=== PATIENT | male | born 1970 | race Caucasian/White ===

== ENCOUNTER 2023-05-01 10:12 | Observation (INO) | payer OTHER, SELFPAY ==
[2023-05-01] VITALS (56 sets, daily range): BP systolic 96–218; BP diastolic 50–125; PULSE 53–82; RESP 11–24; TEMP 36.3–36.7; O2SAT 96–99; BMI 30.4
--- NOTE | 2023-05-01 10:30 | DI.CT_ITS ---
Exam(s) CT THORAX ABD/PEL CTA EXAM: CT THORAX ABD/PEL CTA CLINICAL HISTORY: Abdominal pain, R/O AAA. TECHNIQUE: Imaging Protocol: Axial CT angiography was performed with multi-slice acquisition and mu lti-planar and/or 3D reconstructions. CONTRAST MATERIAL: Intravenous: Omnipaque 350 Contrast volume:100 ml COMPARISON: No exams were available for comparison FINDINGS: CHEST: Pulmonary Arteries: No evidence of filling defects to suggest pulmonary emboli. Tracheobronchial tree: No bronchiectasis or mucus plugging. Mediastinum and Tanisha: No dominant adenopathy or fluid collection. Pulmonary parenchyma: No consolidation or dominant measurable mass. Pleura: No effusion. No pneumothorax. Heart: The heart is notdilated. No coronary artery calcifications are seen. Aorta: Thoracic aorta non-dilated. No visible atherosclerotic changes. Bones: Mild scoliosis. Degenerative changes. Tubes, Catheters, and Lines: None. ABDOMEN and PELVIS: Liver: Normal size. Normal density. No suspicious measurable mass. Portal, Superior Mesenteric, and Splenic Veins: Unremarkable. Gallbladder and Biliary Tract: No radiodense calculus. No biliary dilatation. Pancreas: Normal density, no abnormal calcifications or inflammatory process. Spleen: Normal. Adrenals: No masses seen. Kidneys: Normal size, contour and axis. No radiodense stones. No obstructive uropathy. No masses seen . Vasculature: Abdominal aorta non-dilated. Branch vessels patent. No significant atherosclerotic juan ramon nges. Bowel: Dilated loops of small bowel in the right and mid abdomen the appearance of small bowel obstru ction. No evidence of pneumatosis. Normal quantity of stool. Appendix is unremarkable. Peritoneal Cavity: Small amount of fluid in the pelvis. No focal collection. Lymph Nodes: Within normal limits. Soft Tissues: Unremarkable. Bladder: Symmetric distention, no gross wall thickening. Reproductive Organs: Prostate mildly enlarged. Lymph Nodes: Within normal limits. Bones: Unremarkable for age. IMPRESSION: 1. No evidence of pulmonary embolism, aortic aneurysm or aortic dissection. 2. Findings consistent with small-bowel obstruction which may be secondary to internal hernia or adhe sions. No evidence of vascular abnormality. RADIATION DOSE DELIVERED: Total DLP DATA REPOSITORY: All CT scans at this facility are submitted to the National Radiology Data Registry (NRDR) Dose Index Registry (DIR) with the [employer] (ACR). RADIATION OPTIMIZATION: All CT scans at this facility use at least one of these dose optimization te chniques: automated exposure control; mA and/or kV adjustment per patient size (includes targeted exa ms where dose is matched to clinical indication); or iterative reconstruction.
--- NOTE | 2023-05-01 10:30 | RT.EKG_ITS ---
APPROVED REPORT Exam: Resting ECG Reason for Exam: Abd Pain Patient Location: E HR:60 bpm ECG Measurements Heart Rate 60 AXIS VA [id number] P [id number] QRSd 96 QRS -2 QT 415 T -19 QTc 417 Conclusion A-flutter/fibrillation w/ complete AV block...A-rate>220, V-rate< 60, AV dissoc Consider anterior infarct...Q >30mS in V2-V5 Abnormal T, consider ischemia, inferior leads...T <-0.20mV, II III aVF Narrow complex normal sinus rhythm with significant artifact at a rate of 60. Left axis deviation no signs of LVH based on voltage. Mild upsloping ST segment elevation in V2. Disagree with computer i nterpretation of complete heart block. Will repeat ECG. QTc within normal limits. No acute interve ntion.
--- NOTE | 2023-05-01 10:44 | W.ED.GENAD ---
Discharge Plan Disposition Patient Disposition: Admit to [facility] Condition: Stable Discharge Details Clinical Impression: SBO (small bowel obstruction) Primary Care Provider: Juan Ramon Thomas ED Provider: Sue Mitchell Home Meds and New Rx's Prescriptions: No Action No Known Home Meds Medical Decision Making 53-year-old male presents to the ER with a chief complaint of sharp mid epigastric abdominal pain which has worsened he reports that it radiates down to his lower abdomen. He did vomit clear liquid on the way here. Only surgical history is appendicitis and appendectomy. Denies any medicine denies any drugs or alcohol. Following he is hypertensive upon arrival and writhing around. Generalized abdominal tenderness with mild palpation. Cardiac workup ordered including serial troponins, EKG which showed some artifact, lipase, urinalysis 4 mg Zofran morphine and a liter of normal saline. CTA thorax abdomen pelvis ordered. Differential diagnosis includes but not limited to AAA, gastroenteritis, pancreatitis, bowel obstruction, CAD. 1225: Spoke with [facility] radiologiist he verbally reports concerning findings for small bowel obstruction due to adhesion or internal hernia. Please see official report. 1236: Spoke with Dr. Gresham who is on-call for surgery today she will take a look at the images and call me back. 1254: Spoke again with Dr. Gresham who is on-call for surgery she will be coming into evaluate the patient. She does recommend NG tube if patient is continuing to have emesis. Will inform patient of plan of care and CT results. 1422: Dr. Gresham and anesthesia are here at bedside, plan for surgery. This text was generated using [employer] dictation system, please disregard any oddities of phrase or misspellings. Imaging Data Radiologic Study: Imaging: CT Scan Radiologist's impression: FINDINGS: VASCULATURE: Pulmonary arteries: Not enlarged. Aorta: No acute aortic abnormality identified. No abdominal aortic aneurysm. Celiac trunk and mesenteric arteries: No occlusion or significant stenosis. Renal arteries: No occlusion or significant stenosis. Right iliac arteries: No occlusion or significant stenosis. Left iliac arteries: No occlusion or significant stenosis. CHEST: Lungs: Unremarkable. No consolidation. No masses. Pleural spaces: Unremarkable. No pneumothorax. No pleural effusion. Heart: Unremarkable. No cardiomegaly. No pericardial effusion. Liver: No mass. Gallbladder and bile ducts: Unremarkable. No calcified stones. No ductal dilation. Pancreas: Unremarkable. No mass. No ductal dilation. Spleen: Unremarkable. No splenomegaly. Adrenal glands: Unremarkable. No mass. Kidneys and ureters: Unremarkable. No solid mass. No hydronephrosis. Stomach and bowel: The stomach appears unremarkable. Proximal small bowel is unremarkable. Some mid small bowel loops measuring up to 3.3 cm in diameter and are fluid-filled with a transition to nondilated distal small bowel loops in the right mid pelvis (axial series 6 image 858). Mild small bowel mesenteric fat stranding and vascular hyperemia. No significant wall thickening. The large bowel loops are not abnormally dilated. Appendix: No evidence of appendicitis. Intraperitoneal space: Minimal free fluid in the pelvis. Urinary bladder: Unremarkable. No mass. Reproductive: Unremarkable as visualized. Lymph nodes: Unremarkable. No enlarged lymph nodes. Bones/joints: Unremarkable. No acute fracture. Soft tissues: Unremarkable. IMPRESSION: 1. No acute aortic abnormality identified. No abdominal aortic aneurysm. 2. Findings concerning for small bowel obstruction possibly due to adhesions or internal hernia. 3. Minimal free fluid in the pelvis. Thank you for allowing us to participate in the care of your patient. Dictated and Authenticated by: Reggie Andrade MD Lab Data Lab results reviewed: Yes I reviewed the patient's lab results. Labs: Laboratory Tests Range/Units 05/01/23 05/01/23 05/01/23 10:24 10:24 10:24 WBC (4.4-10.8) 10^3/uL 13.17 H RBC (4.36-5.78) 10^6/uL 5.42 Hgb (13.5-17.5) g/dL 15.4 Hct (40.0-50.0) % 46.5 MCV (80-95) fL 86 MCH (27.0-33.0) pg 28.4 MCHC (32.0-36.0) % 33.1 RDW (11.8-14.1) % 12.7 Plt Count (130-400) 10^3/uL 269 MPV (8.0-11.0) fL 10.5 Immature Gran % 0.3 Neutrophils % 86.7 Lymphocytes % 10.2 Monocytes % 2.6 Eosinophils % 0.0 Basophils % 0.2 Nucleated RBC % (0.0-0.3) % 0.0 Absolute Neutrophils (1.2-6.7) 10^3/uL 11.42 H Absolute Lymphocytes (1.2-3.4) 10^3/uL 1.34 Absolute Monocytes (0.1-0.8) 10^3/uL 0.34 Absolute Eosinophils (0.0-0.7) 10^3/uL 0.00 Absolute Basophils (0.0-0.2) 10^3/uL 0.03 Sodium (136-145) mmol/L 138 Cancelled Potassium (3.5-5.1) mmol/L 4.4 Cancelled Chloride (98-107) mmol/L 101 Carbon Dioxide (21.0-32.0) mmol/L Anion Gap (3-11) mmol/L BUN (7-18) mg/dL Creatinine (0.70-1.30) mg/dL Est GFR (CKD-EPI 2020) (mL/min/1.73m2) Glucose (74-106) mg/dL Calcium (8.5-10.1) mg/dL Magnesium (1.8-2.4) mg/dL Total Bilirubin (0.2-1.0) mg/dL AST (15-37) U/L ALT (16-63) U/L Alkaline Phosphatase (46-116) U/L Troponin I (<or=60) ng/L Total Protein (6.4-8.2) g/dL Albumin (3.4-5.0) g/dL Lipase (16-77) U/L Urine Color (Yellow) Urine Clarity (Clear) Urine pH (5-8) Ur Specific [place] (1.005-1.025) Urine Protein (Negative) mg/dL Urine Ketones (Negative) mg/dL Urine Blood (Negative) Urine Nitrite (Negative) Urine Bilirubin (Negative) Urine Urobilinogen (Up to 0.2) mg/dL Ur Leukocyte Esterase (Negative) Urine RBC (0-2) HPF Urine WBC (0-5) HPF Ur Epithelial Cells (Negative) HPF Urine Crystals (Negative) HPF Urine Bacteria (Negative) HPF Urine Casts (Negative) LPF Urine Mucus (Negative) Ur Culture Indicated? Urine Glucose (Negative) mg/dL Range/Units 05/01/23 05/01/23 05/01/23 10:24 10:24 10:24 WBC (4.4-10.8) 10^3/uL RBC (4.36-5.78) 10^6/uL Hgb (13.5-17.5) g/dL Hct (40.0-50.0) % MCV (80-95) fL MCH (27.0-33.0) pg MCHC (32.0-36.0) % RDW (11.8-14.1) % Plt Count (130-400) 10^3/uL MPV (8.0-11.0) fL Immature Gran % Neutrophils % Lymphocytes % Monocytes % Eosinophils % Basophils % Nucleated RBC % (0.0-0.3) % Absolute Neutrophils (1.2-6.7) 10^3/uL Absolute Lymphocytes (1.2-3.4) 10^3/uL Absolute Monocytes (0.1-0.8) 10^3/uL Absolute Eosinophils (0.0-0.7) 10^3/uL Absolute Basophils (0.0-0.2) 10^3/uL Sodium (136-145) mmol/L Potassium (3.5-5.1) mmol/L Chloride (98-107) mmol/L Cancelled Carbon Dioxide (21.0-32.0) mmol/L 26.5 Cancelled Anion Gap (3-11) mmol/L 10.5 Cancelled BUN (7-18) mg/dL 11 Creatinine (0.70-1.30) mg/dL Est GFR (CKD-EPI 2020) (mL/min/1.73m2) Glucose (74-106) mg/dL Calcium (8.5-10.1) mg/dL Magnesium (1.8-2.4) mg/dL Total Bilirubin (0.2-1.0) mg/dL AST (15-37) U/L ALT (16-63) U/L Alkaline Phosphatase (46-116) U/L Troponin I (<or=60) ng/L Total Protein (6.4-8.2) g/dL Albumin (3.4-5.0) g/dL Lipase (16-77) U/L Urine Color (Yellow) Urine Clarity (Clear) Urine pH (5-8) Ur Specific [place] (1.005-1.025) Urine Protein (Negative) mg/dL Urine Ketones (Negative) mg/dL Urine Blood (Negative) Urine Nitrite (Negative) Urine Bilirubin (Negative) Urine Urobilinogen (Up to 0.2) mg/dL Ur Leukocyte Esterase (Negative) Urine RBC (0-2) HPF Urine WBC (0-5) HPF Ur Epithelial Cells (Negative) HPF Urine Crystals (Negative) HPF Urine Bacteria (Negative) HPF Urine Casts (Negative) LPF Urine Mucus (Negative) Ur Culture Indicated? Urine Glucose (Negative) mg/dL Range/Units 05/01/23 05/01/23 05/01/23 10:24 10:24 10:24 WBC (4.4-10.8) 10^3/uL RBC (4.36-5.78) 10^6/uL Hgb (13.5-17.5) g/dL Hct (40.0-50.0) % MCV (80-95) fL MCH (27.0-33.0) pg MCHC (32.0-36.0) % RDW (11.8-14.1) % Plt Count (130-400) 10^3/uL MPV (8.0-11.0) fL Immature Gran % Neutrophils % Lymphocytes % Monocytes % Eosinophils % Basophils % Nucleated RBC % (0.0-0.3) % Absolute Neutrophils (1.2-6.7) 10^3/uL Absolute Lymphocytes (1.2-3.4) 10^3/uL Absolute Monocytes (0.1-0.8) 10^3/uL Absolute Eosinophils (0.0-0.7) 10^3/uL Absolute Basophils (0.0-0.2) 10^3/uL Sodium (136-145) mmol/L Potassium (3.5-5.1) mmol/L Chloride (98-107) mmol/L Carbon Dioxide (21.0-32.0) mmol/L Anion Gap (3-11) mmol/L BUN (7-18) mg/dL Cancelled Creatinine (0.70-1.30) mg/dL 1.1 Cancelled Est GFR (CKD-EPI 2020) (mL/min/1.73m2) 80.77 Cancelled Glucose (74-106) mg/dL 146 H Calcium (8.5-10.1) mg/dL Magnesium (1.8-2.4) mg/dL Total Bilirubin (0.2-1.0) mg/dL AST (15-37) U/L ALT (16-63) U/L Alkaline Phosphatase (46-116) U/L Troponin I (<or=60) ng/L Total Protein (6.4-8.2) g/dL Albumin (3.4-5.0) g/dL Lipase (16-77) U/L Urine Color (Yellow) Urine Clarity (Clear) Urine pH (5-8) Ur Specific [place] (1.005-1.025) Urine Protein (Negative) mg/dL Urine Ketones (Negative) mg/dL Urine Blood (Negative) Urine Nitrite (Negative) Urine Bilirubin (Negative) Urine Urobilinogen (Up to 0.2) mg/dL Ur Leukocyte Esterase (Negative) Urine RBC (0-2) HPF Urine WBC (0-5) HPF Ur Epithelial Cells (Negative) HPF Urine Crystals (Negative) HPF Urine Bacteria (Negative) HPF Urine Casts (Negative) LPF Urine Mucus (Negative) Ur Culture Indicated? Urine Glucose (Negative) mg/dL Range/Units 05/01/23 05/01/23 05/01/23 10:24 10:24 10:24 WBC (4.4-10.8) 10^3/uL RBC (4.36-5.78) 10^6/uL Hgb (13.5-17.5) g/dL Hct (40.0-50.0) % MCV (80-95) fL MCH (27.0-33.0) pg MCHC (32.0-36.0) % RDW (11.8-14.1) % Plt Count (130-400) 10^3/uL MPV (8.0-11.0) fL Immature Gran % Neutrophils % Lymphocytes % Monocytes % Eosinophils % Basophils % Nucleated RBC % (0.0-0.3) % Absolute Neutrophils (1.2-6.7) 10^3/uL Absolute Lymphocytes (1.2-3.4) 10^3/uL Absolute Monocytes (0.1-0.8) 10^3/uL Absolute Eosinophils (0.0-0.7) 10^3/uL Absolute Basophils (0.0-0.2) 10^3/uL Sodium (136-145) mmol/L Potassium (3.5-5.1) mmol/L Chloride (98-107) mmol/L Carbon Dioxide (21.0-32.0) mmol/L Anion Gap (3-11) mmol/L BUN (7-18) mg/dL Creatinine (0.70-1.30) mg/dL Est GFR (CKD-EPI 2020) (mL/min/1.73m2) Glucose (74-106) mg/dL Cancelled Calcium (8.5-10.1) mg/dL 9.6 Cancelled Magnesium (1.8-2.4) mg/dL 2.1 Cancelled Total Bilirubin (0.2-1.0) mg/dL 0.6 AST (15-37) U/L ALT (16-63) U/L Alkaline Phosphatase (46-116) U/L Troponin I (<or=60) ng/L Total Protein (6.4-8.2) g/dL Albumin (3.4-5.0) g/dL Lipase (16-77) U/L Urine Color (Yellow) Urine Clarity (Clear) Urine pH (5-8) Ur Specific [place] (1.005-1.025) Urine Protein (Negative) mg/dL Urine Ketones (Negative) mg/dL Urine Blood (Negative) Urine Nitrite (Negative) Urine Bilirubin (Negative) Urine Urobilinogen (Up to 0.2) mg/dL Ur Leukocyte Esterase (Negative) Urine RBC (0-2) HPF Urine WBC (0-5) HPF Ur Epithelial Cells (Negative) HPF Urine Crystals (Negative) HPF Urine Bacteria (Negative) HPF Urine Casts (Negative) LPF Urine Mucus (Negative) Ur Culture Indicated? Urine Glucose (Negative) mg/dL Range/Units 05/01/23 05/01/23 05/01/23 10:24 10:24 10:24 WBC (4.4-10.8) 10^3/uL RBC (4.36-5.78) 10^6/uL Hgb (13.5-17.5) g/dL Hct (40.0-50.0) % MCV (80-95) fL MCH (27.0-33.0) pg MCHC (32.0-36.0) % RDW (11.8-14.1) % Plt Count (130-400) 10^3/uL MPV (8.0-11.0) fL Immature Gran % Neutrophils % Lymphocytes % Monocytes % Eosinophils % Basophils % Nucleated RBC % (0.0-0.3) % Absolute Neutrophils (1.2-6.7) 10^3/uL Absolute Lymphocytes (1.2-3.4) 10^3/uL Absolute Monocytes (0.1-0.8) 10^3/uL Absolute Eosinophils (0.0-0.7) 10^3/uL Absolute Basophils (0.0-0.2) 10^3/uL Sodium (136-145) mmol/L Potassium (3.5-5.1) mmol/L Chloride (98-107) mmol/L Carbon Dioxide (21.0-32.0) mmol/L Anion Gap (3-11) mmol/L BUN (7-18) mg/dL Creatinine (0.70-1.30) mg/dL Est GFR (CKD-EPI 2020) (mL/min/1.73m2) Glucose (74-106) mg/dL Calcium (8.5-10.1) mg/dL Magnesium (1.8-2.4) mg/dL Total Bilirubin (0.2-1.0) mg/dL Cancelled AST (15-37) U/L 14 L Cancelled ALT (16-63) U/L 24 Cancelled Alkaline Phosphatase (46-116) U/L 111 Troponin I (<or=60) ng/L Total Protein (6.4-8.2) g/dL Albumin (3.4-5.0) g/dL Lipase (16-77) U/L Urine Color (Yellow) Urine Clarity (Clear) Urine pH (5-8) Ur Specific [place] (1.005-1.025) Urine Protein (Negative) mg/dL Urine Ketones (Negative) mg/dL Urine Blood (Negative) Urine Nitrite (Negative) Urine Bilirubin (Negative) Urine Urobilinogen (Up to 0.2) mg/dL Ur Leukocyte Esterase (Negative) Urine RBC (0-2) HPF Urine WBC (0-5) HPF Ur Epithelial Cells (Negative) HPF Urine Crystals (Negative) HPF Urine Bacteria (Negative) HPF Urine Casts (Negative) LPF Urine Mucus (Negative) Ur Culture Indicated? Urine Glucose (Negative) mg/dL Range/Units 05/01/23 05/01/23 05/01/23 10:24 10:24 10:24 WBC (4.4-10.8) 10^3/uL RBC (4.36-5.78) 10^6/uL Hgb (13.5-17.5) g/dL Hct (40.0-50.0) % MCV (80-95) fL MCH (27.0-33.0) pg MCHC (32.0-36.0) % RDW (11.8-14.1) % Plt Count (130-400) 10^3/uL MPV (8.0-11.0) fL Immature Gran % Neutrophils % Lymphocytes % Monocytes % Eosinophils % Basophils % Nucleated RBC % (0.0-0.3) % Absolute Neutrophils (1.2-6.7) 10^3/uL Absolute Lymphocytes (1.2-3.4) 10^3/uL Absolute Monocytes (0.1-0.8) 10^3/uL Absolute Eosinophils (0.0-0.7) 10^3/uL Absolute Basophils (0.0-0.2) 10^3/uL Sodium (136-145) mmol/L Potassium (3.5-5.1) mmol/L Chloride (98-107) mmol/L Carbon Dioxide (21.0-32.0) mmol/L Anion Gap (3-11) mmol/L BUN (7-18) mg/dL Creatinine (0.70-1.30) mg/dL Est GFR (CKD-EPI 2020) (mL/min/1.73m2) Glucose (74-106) mg/dL Calcium (8.5-10.1) mg/dL Magnesium (1.8-2.4) mg/dL Total Bilirubin (0.2-1.0) mg/dL AST (15-37) U/L ALT (16-63) U/L Alkaline Phosphatase (46-116) U/L Cancelled Troponin I (<or=60) ng/L < 50 Total Protein (6.4-8.2) g/dL 8.2 Cancelled Albumin (3.4-5.0) g/dL 4.5 Cancelled Lipase (16-77) U/L 35 Urine Color (Yellow) Urine Clarity (Clear) Urine pH (5-8) Ur Specific [place] (1.005-1.025) Urine Protein (Negative) mg/dL Urine Ketones (Negative) mg/dL Urine Blood (Negative) Urine Nitrite (Negative) Urine Bilirubin (Negative) Urine Urobilinogen (Up to 0.2) mg/dL Ur Leukocyte Esterase (Negative) Urine RBC (0-2) HPF Urine WBC (0-5) HPF Ur Epithelial Cells (Negative) HPF Urine Crystals (Negative) HPF Urine Bacteria (Negative) HPF Urine Casts (Negative) LPF Urine Mucus (Negative) Ur Culture Indicated? Urine Glucose (Negative) mg/dL Range/Units 05/01/23 05/01/23 12:50 13:35 WBC (4.4-10.8) 10^3/uL RBC (4.36-5.78) 10^6/uL Hgb (13.5-17.5) g/dL Hct (40.0-50.0) % MCV (80-95) fL MCH (27.0-33.0) pg MCHC (32.0-36.0) % RDW (11.8-14.1) % Plt Count (130-400) 10^3/uL MPV (8.0-11.0) fL Immature Gran % Neutrophils % Lymphocytes % Monocytes % Eosinophils % Basophils % Nucleated RBC % (0.0-0.3) % Absolute Neutrophils (1.2-6.7) 10^3/uL Absolute Lymphocytes (1.2-3.4) 10^3/uL Absolute Monocytes (0.1-0.8) 10^3/uL Absolute Eosinophils (0.0-0.7) 10^3/uL Absolute Basophils (0.0-0.2) 10^3/uL Sodium (136-145) mmol/L Potassium (3.5-5.1) mmol/L Chloride (98-107) mmol/L Carbon Dioxide (21.0-32.0) mmol/L Anion Gap (3-11) mmol/L BUN (7-18) mg/dL Creatinine (0.70-1.30) mg/dL Est GFR (CKD-EPI 2020) (mL/min/1.73m2) Glucose (74-106) mg/dL Calcium (8.5-10.1) mg/dL Magnesium (1.8-2.4) mg/dL Total Bilirubin (0.2-1.0) mg/dL AST (15-37) U/L ALT (16-63) U/L Alkaline Phosphatase (46-116) U/L Troponin I (<or=60) ng/L Cancelled Total Protein (6.4-8.2) g/dL Albumin (3.4-5.0) g/dL Lipase (16-77) U/L Urine Color (Yellow) Yellow Urine Clarity (Clear) Clear Urine pH (5-8) 8.5 H Ur Specific [place] (1.005-1.025) 1.015 Urine Protein (Negative) mg/dL 30 H Urine Ketones (Negative) mg/dL 15 H Urine Blood (Negative) Negative Urine Nitrite (Negative) Negative Urine Bilirubin (Negative) Negative Urine Urobilinogen (Up to 0.2) mg/dL 1.0 H Ur Leukocyte Esterase (Negative) Negative Urine RBC (0-2) HPF Negative Urine WBC (0-5) HPF Negative Ur Epithelial Cells (Negative) HPF Rare Urine Crystals (Negative) HPF Negative Urine Bacteria (Negative) HPF Negative Urine Casts (Negative) LPF 0-2 Hyaline Urine Mucus (Negative) Negative Ur Culture Indicated? No Urine Glucose (Negative) mg/dL Negative HPI General Mode of arrival: ambulatory. Date/Time Provider Initiated Documentation: 05/01/23 10:33. Limitations to Documentation: no limitations. Information obtained by: patient, RN notes reviewed and old records reviewed. HPI Narrative: 53-year-old male presents to the ER with a chief complaint of sharp mid epigastric abdominal pain which has worsened he reports that it radiates down to his lower abdomen. He did vomit clear liquid on the way here. Only surgical history is appendicitis and appendectomy. Denies any medicine denies any drugs or alcohol. Following he is hypertensive upon arrival and writhing around. Generalized abdominal tenderness with mild palpation. Related Data Home Medications Medication Instructions Recorded Confirmed Unknown [No Known Home Meds] 07/16/18 05/01/23 Allergies Allergy/AdvReac Type Severity Reaction Status Date / Time No Known Allergies Allergy Verified 05/01/23 10:20 General Stated Complaint: Abd Prob JOEL: 3 Review of Systems All systems reviewed & are unremarkable except as noted in HPI and below Gastrointestinal Gastrointestinal: Reports as per HPI, Reports abdominal pain, Reports nausea and Reports vomiting PFSH All Active Problems (Updated 05/01/23 @ 13:12 by Sue Mitchell NP) SBO (small bowel obstruction) (Acute) Surgical History Hx of tonsillectomy 1988 History of appendectomy 1988 Family History Mother No problems noted. Father Hypertension Heart murmur Sleep apnea pt reports father's case of Sleep Apnea is mild Sister No problems noted. Sister No problems noted. Sister No problems noted. Brother No problems noted. Social History Smoking/Tobacco Use Status: Former Tobacco Use Tobacco: How many years used: 16 Smoking risk assessment performed?: Yes Alcohol Intake: former Drug use: Never Substance use type: does not use Household members: children Housing: house Current gender identity: male What is your relationship status?: Panel score (0-1 are the most socially isolated patients): 0 What type of physical activity do you participate in: none Seatbelt use: always Drive intox or ride w/intox dump truck driver off highway: No Working smoke detector in home: Yes Fire extinguisher in home: No Carbon monox detector in home: Yes Do you feel safe at home: Yes Do you feel safe in your relationship?: Yes Exam Narrative Exam Narrative: Constitutional: Alert and oriented x3. Appears stated age. Normal body habitus. He appears very uncomfortable. Head: Normocephalic, no trauma. Eyes: Pupils PERRL, Red reflex noted, EOM's intact. Eyelids symmetrical without lesions, discharge, or swelling. Chest: RRR, Normal S1, S2, distal pulses intact. He is hypertensive upon arrival. Resp: Lungs clear to auscultation bilaterally, no wheezes, rales, or rhonchi. Abdomen: Tender to all 4 quadrants with palpation. Positive guarding. Musculoskeletal: Normal gait, 5/5 strength to all four extremities. Skin: No suspicious rashes or lesions. Capillary refill less than 2 sec. Neurologic: Cranial nerves II-XII intact. Alert and oriented x 3. Motor: No deficits noted. Hematologic/Lymphatic: No ecchymosis, no lymphadenopathy. Course Vital Signs Vital signs: Vital Signs Temperature 36.6 C 05/01/23 10:17 Pulse 70 05/01/23 10:17 Respiratory Rate 18 05/01/23 10:17 Blood Pressure 194/108 H 05/01/23 10:17 Pulse Oximetry 99 05/01/23 10:17 Temperature 36.6 C 05/01/23 10:17 Temperature Source Oral 05/01/23 10:17 Pulse 70 05/01/23 10:17 Respiratory Rate 18 05/01/23 10:17 Respiratory Effort Non-Labored 05/01/23 10:21 Blood Pressure 194/108 H 05/01/23 10:17 Blood Pressure Position Sitting 05/01/23 10:17 Pulse Oximetry 99 05/01/23 10:17 Oxygen Delivery Method Room Air 05/01/23 10:17 Oxygen Flow Rate 0 05/01/23 10:17 Pain Level 9 05/01/23 10:23
[2023-05-01 10:46] LABS: Abs Immature Grans 0.04 10^3/uL (0.0-0.06); Absolute Basophil Count 0.03 10^3/uL (0.0-0.2); Absolute Lymphocyte Count 1.34 10^3/uL (1.2-3.4); Absolute Monocyte Count 0.34 10^3/uL (0.1-0.8); Absolute Neutrophil Count 11.42 10^3/uL (1.2-6.7); Basophils % 0.2; HCT 46.5 % (40.0-50.0); HGB 15.4 g/dL (13.5-17.5); Immature Grans % 0.3; Lymphocytes % 10.2; MCH 28.4 pg (27.0-33.0); MCHC 33.1 % (32.0-36.0); MCV 86 fL (80-95); MPV 10.5 fL (8.0-11.0); Monocytes % 2.6; Neutrophils % 86.7; Platelet Count 269 10^3/uL (130-400); RBC 5.42 10^6/uL (4.36-5.78); RDW 12.7 % (11.8-14.1); RDW-SD 39.4 fL; WBC 13.17 10^3/uL (4.4-10.8)
[2023-05-01] MEDS: Normal Saline 1,000 ML 1000 ML IV (10:55)
[2023-05-01] MEDS: Ondansetron 4 MG/2 ML VIAL IVP (10:56)
[2023-05-01] MEDS: MORPHine 4 MG/ML SYR ×2 (10:56→13:08)
--- NOTE | 2023-05-01 11:00 | RT.EKG_ITS ---
APPROVED REPORT Exam: Resting ECG Reason for Exam: abdominal pain Patient Location: E HR:60 bpm ECG Measurements Heart Rate 60 AXIS AR 159 P 33 QRSd 91 QRS -4 QT 440 T -10 QTc 442 Conclusion Sinus rhythm...normal P axis, V-rate 60- 99 Narrow complex normal sinus rhythm at a rate of 60. Left axis deviation no signs of LVH. Inferior T wave inversions V3 and aVF. No ST segment abnormalities. No acute injury pattern. AR and QTc is w ithin normal limits. Compared to prior dated earlier today significant artifact has resolved.
[2023-05-01 11:04] LABS: ALT 24 U/L (16-63); AST 14 U/L (15-37); Albumin 4.5 g/dL (3.4-5.0); Alkaline Phosphatase 111 U/L (46-116); Anion Gap 10.5 mmol/L (3-11); BUN 11 mg/dL (7-18); Bilirubin, Total 0.6 mg/dL (0.2-1.0); CO2 26.5 mmol/L (21.0-32.0); CREATININE 1.1 mg/dL (0.70-1.30); Calcium 9.6 mg/dL (8.5-10.1); Chloride 101 mmol/L (98-107); Estimated GFR 80.77 (mL/min/1.73m2); Glucose 146 mg/dL (74-106); Lipase 35 U/L (16-77); Magnesium 2.1 mg/dL (1.8-2.4); Potassium 4.4 mmol/L (3.5-5.1); Sodium 138 mmol/L (136-145); Total Protein 8.2 g/dL (6.4-8.2); Troponin I < 50 ng/L (<or=60)
[2023-05-01] MEDS: Omnipaque 350 MG/ML 100 ML BTL IJ (11:25)
[2023-05-01] MEDS: Normal Saline - Diluent 50 ML VIAL IJ (11:26)
--- NOTE | 2023-05-01 12:24 | DI.VRAD_ITS ---
Addendum created by Reggie Andrade MD on 05/01/2023 12:26:08 PM EST: THIS REPORT CONTAINS FINDINGS THAT MAY BE CRITICAL TO PATIENT CARE. The findings were verbally communicated via telephone conference with MANISHA FELIZ at 12:25 PM EST on 05/01/2023. The findings were acknowledged and understood. Initial report created on 05/01/2023 12:23:57 PM EST: PROCEDURE INFORMATION: Exam: CTA Chest With Contrast CTA Abdomen and Pelvis With Contrast Exam date and time: 05/01/2023 11:27 AM Age: 53 years old Clinical indication: Other: Unspecified; Generalized; Patient HX: Abdominal pain, R/O aaa TECHNIQUE: Imaging protocol: Computed tomographic angiography of the chest with contrast. Exam focused on the arteries. Computed tomographic angiography of the abdomen and pelvis with contrast. Exam focused on the arteries. 3D rendering (Not supervised by radiologist): MIP and/or 3D reconstructed images were created by the technologist. COMPARISON: No relevant prior studies available. FINDINGS: VASCULATURE: Pulmonary arteries: Not enlarged. Aorta: No acute aortic abnormality identified. No abdominal aortic aneurysm. Celiac trunk and mesenteric arteries: No occlusion or significant stenosis. Renal arteries: No occlusion or significant stenosis. Right iliac arteries: No occlusion or significant stenosis. Left iliac arteries: No occlusion or significant stenosis. CHEST: Lungs: Unremarkable. No consolidation. No masses. Pleural spaces: Unremarkable. No pneumothorax. No pleural effusion. Heart: Unremarkable. No cardiomegaly. No pericardial effusion. ABDOMEN AND PELVIS: Liver: No mass. Gallbladder and bile ducts: Unremarkable. No calcified stones. No ductal dilation. Pancreas: Unremarkable. No mass. No ductal dilation. Spleen: Unremarkable. No splenomegaly. Adrenal glands: Unremarkable. No mass. Kidneys and ureters: Unremarkable. No solid mass. No hydronephrosis. Stomach and bowel: The stomach appears unremarkable. Proximal small bowel is unremarkable. Some mid small bowel loops measuring up to 3.3 cm in diameter and are fluid-filled with a transition to nondilated distal small bowel loops in the right mid pelvis (axial series 6 image [id number]). Mild small bowel mesenteric fat stranding and vascular hyperemia. No significant wall thickening. The large bowel loops are not abnormally dilated. Appendix: No evidence of appendicitis. Intraperitoneal space: Minimal free fluid in the pelvis. Urinary bladder: Unremarkable. No mass. Reproductive: Unremarkable as visualized. Lymph nodes: Unremarkable. No enlarged lymph nodes. Bones/joints: Unremarkable. No acute fracture. Soft tissues: Unremarkable. IMPRESSION: 1. No acute aortic abnormality identified. No abdominal aortic aneurysm. 2. Findings concerning for small bowel obstruction possibly due to adhesions or internal hernia. 3. Minimal free fluid in the pelvis. Dictated and Authenticated by: Reggie Andrade MD. Ordering:DARSHAN Rogers MD
[2023-05-01 13:00] LABS: Bilirubin Negative (Negative); Blood Negative (Negative); Clarity Clear (Clear); Glucose Negative (Negative); Ketones 15 mg/dL (Negative); Leukocyte Esterase Negative (Negative); Nitrite Negative (Negative); Specific Gravity 1.015 (1.005-1.025); pH 8.5 (5-8)
[2023-05-01 13:06] LABS: Bacteria Negative HPF (Negative); C & S Indicated? No; Casts 0-2 Hyaline LPF (Negative); Crystals Negative HPF (Negative); Epithelial Cells Rare HPF (Negative); Mucus Negative (Negative); RBC Negative HPF (0-2); WBC Negative HPF (0-5)
[2023-05-01] MEDS: Normal Saline 1,000 ML 250 ML IV (13:09)
--- NOTE | 2023-05-01 14:33 | ANES.PREOP_ITS ---
General Info Date of Service Date Performed: 05/01/23 Height: 5 ft 10 in Weight: 96.162 kg Body Mass Index (BMI): 30.4 Meds Allergies and Home Medications Allergies Allergy/AdvReac Type Severity Reaction Status Date / Time No Known Allergies Allergy Verified 05/01/23 10:20 Home Medication Medication Instructions Recorded Unknown [No Known Home Meds] 07/16/18 Current Visit Medications: Current Medications Generic Name Dose Route Start Last Admin Trade Name Freq PRN Reason Stop Dose Admin Sodium Chloride 1,000 mls @ 250 mls/hr 05/01/23 12:56 05/01/23 13:09 Saline 1000ml Bag IV 05/01/23 16:55 250 mls/hr INFUSION STA Administration IV Miscellaneous Supplies 1 each 05/01/23 10:45 Iv Access-Emergency Dept IV DIRECTED NOHELIA Iohexol 100 ml 05/01/23 11:30 05/01/23 11:25 Omnipaque 350 Mg/Ml 100 Ml Btl IJ 05/31/23 23:59 100 ml DIRECTED NOHELIA Administration Sodium Chloride 0 ml 05/01/23 10:34 Normal Saline Flush 10 Ml Syr IVP PRN PRN Sodium Chloride 0 ml 05/01/23 20:00 Normal Saline Flush 10 Ml Syr IVP BID NOHELIA Sodium Chloride 0 ml 05/01/23 10:34 Normal Saline 10 Ml Vial IJ DIRECTED PRN Sodium Chloride 50 ml 05/01/23 11:30 05/01/23 11:26 Normal Saline - Diluent 50 Ml Vial IJ 50 ml .FOR DI USE NOHELIA Administration [facility] Surgical History Surgical History Hx of tonsillectomy 1988 History of appendectomy 1988 Tobacco Smoking/Tobacco Use Status: Former Tobacco Use Alcohol Alcohol Intake: former Substance Use Substance use: Never Substance use type: does not use Vital Signs and Lab Results Vital Signs Most Recent Vital Signs in EMR: Most Recent Vital Signs Temp Pulse Resp BP Pulse Ox 36.6 C 61 15 157/93 H 99 05/01/23 10:17 05/01/23 14:16 05/01/23 14:20 05/01/23 14:16 05/01/23 10:17 Lab Results 05/01/23 10:24 05/01/23 10:24 Blood Type / Crossmatch: 2 No Data to Display Complete Blood Count: 2 White Blood Count 13.17 10^3/uL (4.4-10.8) H 05/01/23 10:24 Red Blood Count 5.42 10^6/uL (4.36-5.78) 05/01/23 10:24 Hemoglobin 15.4 g/dL (13.5-17.5) 05/01/23 10:24 Hematocrit 46.5 % (40.0-50.0) 05/01/23 10:24 Platelet Count 269 10^3/uL (130-400) 05/01/23 10:24 Complete Metabolic Panel: 2 Sodium 138 mmol/L (136-145) 05/01/23 10:24 Potassium 4.4 mmol/L (3.5-5.1) 05/01/23 10:24 Chloride 101 mmol/L (98-107) 05/01/23 10:24 Carbon Dioxide 26.5 mmol/L (21.0-32.0) 05/01/23 10:24 BUN 11 mg/dL (7-18) 05/01/23 10:24 Creatinine 1.1 mg/dL (0.70-1.30) 05/01/23 10:24 Est GFR (CKD-EPI 2020) 80.77 (mL/min/1.73m2) 05/01/23 10:24 Magnesium 2.1 mg/dL (1.8-2.4) 05/01/23 10:24 Calcium 9.6 mg/dL (8.5-10.1) 05/01/23 10:24 Albumin 4.5 g/dL (3.4-5.0) 05/01/23 10:24 Glucose 146 mg/dL (74-106) H 05/01/23 10:24 Liver Function Panel: 2 Alanine Aminotransferase (ALT/SGPT) 24 U/L (16-63) 05/01/23 10: 24 Aspartate Amino Transf (AST/SGOT) 14 U/L (15-37) L 05/01/23 10: 24 Coagulation Panel: 2 No Data to Display Cardiac Panel: 2 Troponin I < 50 ng/L (<or=60) 05/01/23 Arterial Blood Gas: 2 No Data to Display Venous Blood Gas: 2 No Data to Display Pancreas Panel: 2 Lipase 35 U/L (16-77) 05/01/23 10:24 Thyroid Panel: 2 No Data to Display Infectious Disease: 2 No Data to Display Blood Cultures: 2 No Data to Display Toxicology Panel: 2 No Data to Display Anesthesia Assessment and Plan Anesthesia History Personal History: No History of Anesthesia Complications Family History: No Family History of Anesthesia Complications Exercise Tolerance Exercise Tolerance: Metabolic Equivalents>4 Pertinent Negatives Pertinent Negatives: No Symptoms of GERD Cardiac & Pulmonary Exam Cardiac Exam: Normal S1/S2 Heart Sounds Pulmonary Exam: Clear Bilateral Breath Sounds Implantable Cardiac Device Does patient have a Pacemaker or an ICD?: No Airway Exam Known Difficult Airway: No Mallampati Class: 2 Mouth Opening: Normal (> 3cm) Thyromental Distance: Greater than 3 cm Neck Range of Motion: Full ROM Neck Circumference: Normal Teeth Condition: Normal Dentition ASA Classification ASA Score: ASA 2 Emergency Case?: Yes NPO Status NPO Status: NPO Clear Liquids>2 hours (Bowel Obstruction) Anesthesia Plan Resuscitation Status: Full Code Anesthesia Technique: General Anesthesia Airway Planned: Endotracheal Tube Monitors Used: Standard Monitors
--- NOTE | 2023-05-01 14:44 | W.PM.HP.N ---
Date of service: 05/01/23 Time of Service: 14:45 Assessment and Plan Assessment and plan (1) SBO (small bowel obstruction): Status: Acute Assessment and plan: This is a 53-year-old male who presented with a several hour history of acute abdominal pain. Clinical review and CT imaging are concerning for closed-loop small bowel obstruction. These findings were reviewed with the patient and his family, and operative intervention was offered. I reviewed the risks, benefits, and expected outcome. All questions were answered. --plan for laparoscopic lysis of adhesions, possible open, possible bowel resection --NPO --IV fluids --pain control --perioperative antibiotic dosing History of Present Illness History of Present Illness Chief Complaint: abdominal pain Narrative: This is a healthy 53-year-old male who was awaken at 4am with sharp pain involving his entire abdomen. He had a normal day and evening yesterday, and went to bed without discomfort. He describes that the pain quickly escalated at home, and he had subjective fevers/chills. He tried to ingest water, which resulted in small amounts of emesis. He had a small bowel movement this morning, and continues to pass a little flatus without relief. He denies other symptoms. He has never had a colonoscopy, and has a distant history of an appendectomy. Review of Systems Narrative: A 10-point ROS was conducted. Pertinent positives are above. PFSH All Active Problems (Updated 05/01/23 @ 13:12 by Sue Mitchell NP) SBO (small bowel obstruction) (Acute) Surgical History Hx of tonsillectomy 1988 History of appendectomy 1988 Family History Mother No problems noted. Father Hypertension Heart murmur Sleep apnea pt reports father's case of Sleep Apnea is mild Sister No problems noted. Sister No problems noted. Sister No problems noted. Brother No problems noted. Social History Smoking/Tobacco Use Status: Former Tobacco Use Tobacco: How many years used: 16 Smoking risk assessment performed?: Yes Alcohol Intake: former Drug use: Never Substance use type: does not use Household members: children Housing: house Current gender identity: male What is your relationship status?: Panel score (0-1 are the most socially isolated patients): 0 What type of physical activity do you participate in: none Seatbelt use: always Drive intox or ride w/intox tram driver: No Working smoke detector in home: Yes Fire extinguisher in home: No Carbon monox detector in home: Yes Do you feel safe at home: Yes Do you feel safe in your relationship?: Yes Meds Allergies and Home Medications Allergies Allergy/AdvReac Type Severity Reaction Status Date / Time No Known Allergies Allergy Verified 05/01/23 10:20 Home Medications Medication Instructions Recorded Confirmed Type Unknown [No Known Home Meds] 07/16/18 05/01/23 History Exam Const General: cooperative, healthy appearing and uncomfortable Nutritional Appearance: average body habitus and well nourished Orientation: alert, awake and oriented x3 HENMT Mouth: moist mucous membranes and no muffled voice Neck Neck: normal visual inspection and trachea midline Resp Effort & Inspection: normal respiratory effort, able to speak in complete sentences and no respiratory distress Auscultation: clear to auscultation bilaterally Cardio Rate: regular rate Rhythm: regular rhythm Heart Sounds: S1 normal and S2 normal GI Inspection: normal to inspection Palpation: soft, not firm, guarding, not rigid and tender Percussion: normal to percussion Auscultation: absent bowel sounds Skin General skin exam: no rashes or lesions noted, no jaundice and no pallor Neuro General: patient alert, patient awake and patient oriented x3 Cognition: normal cognition Speech: speech normal Psych Appearance: grossly normal and well kempt Mental Status: mental status grossly normal Mood: congruent mood Affect: normal affect Thought Process: normal Thought Content: normal Insight: insight good Judgment: judgment good Results Imaging CT scan - pelvis: report reviewed and image reviewed Imaging Studies: CTA Ch/Abd/Pel (05/01/2023): FINDINGS: VASCULATURE: Pulmonary arteries: Not enlarged. Aorta: No acute aortic abnormality identified. No abdominal aortic aneurysm. Celiac trunk and mesenteric arteries: No occlusion or significant stenosis. Renal arteries: No occlusion or significant stenosis. Right iliac arteries: No occlusion or significant stenosis. Left iliac arteries: No occlusion or significant stenosis. CHEST: Lungs: Unremarkable. No consolidation. No masses. Pleural spaces: Unremarkable. No pneumothorax. No pleural effusion. Heart: Unremarkable. No cardiomegaly. No pericardial effusion. ABDOMEN AND PELVIS: Liver: No mass. Gallbladder and bile ducts: Unremarkable. No calcified stones. No ductal dilation. Pancreas: Unremarkable. No mass. No ductal dilation. Spleen: Unremarkable. No splenomegaly. Adrenal glands: Unremarkable. No mass. Kidneys and ureters: Unremarkable. No solid mass. No hydronephrosis. Stomach and bowel: The stomach appears unremarkable. Proximal small bowel is unremarkable. Some mid small bowel loops measuring up to 3.3 cm in diameter and are fluid-filled with a transition to nondilated distal small bowel loops in the right mid pelvis (axial series 6 image 858). Mild small bowel mesenteric fat stranding and vascular hyperemia. No significant wall thickening. The large bowel loops are not abnormally dilated. Appendix: No evidence of appendicitis. Intraperitoneal space: Minimal free fluid in the pelvis. Urinary bladder: Unremarkable. No mass. Reproductive: Unremarkable as visualized. Lymph nodes: Unremarkable. No enlarged lymph nodes. Bones/joints: Unremarkable. No acute fracture. Soft tissues: Unremarkable. IMPRESSION: 1. No acute aortic abnormality identified. No abdominal aortic aneurysm. 2. Findings concerning for small bowel obstruction possibly due to adhesions or internal hernia. 3. Minimal free fluid in the pelvis. Dictated and Authenticated by: Reggie Andrade MD. Ordering:DARSHAN Rogers MD Labs 05/01/23 10:24 05/01/23 10:24 Labs: Laboratory Results - last 24 hr 05/01/23 05/01/23 05/01/23 10:24 10:24 10:24 WBC 13.17 H RBC 5.42 Hgb 15.4 Hct 46.5 MCV 86 MCH 28.4 MCHC 33.1 RDW 12.7 Plt Count 269 MPV 10.5 Immature Gran % 0.3 Neutrophils % 86.7 Lymphocytes % 10.2 Monocytes % 2.6 Eosinophils % 0.0 Basophils % 0.2 Nucleated RBC % 0.0 Absolute Neutrophils 11.42 H Absolute Lymphocytes 1.34 Absolute Monocytes 0.34 Absolute Eosinophils 0.00 Absolute Basophils 0.03 Sodium 138 Cancelled Potassium 4.4 Cancelled Chloride 101 Carbon Dioxide Anion Gap BUN Creatinine Est GFR (CKD-EPI 2020) Glucose Calcium Magnesium Total Bilirubin AST ALT Alkaline Phosphatase Troponin I Total Protein Albumin Lipase Urine Color Urine Clarity Urine pH Ur Specific [place] Urine Protein Urine Ketones Urine Blood Urine Nitrite Urine Bilirubin Urine Urobilinogen Ur Leukocyte Esterase Urine RBC Urine WBC Ur Epithelial Cells Urine Crystals Urine Bacteria Urine Casts Urine Mucus Ur Culture Indicated? Urine Glucose 05/01/23 05/01/23 05/01/23 10:24 10:24 10:24 WBC RBC Hgb Hct MCV MCH MCHC RDW Plt Count MPV Immature Gran % Neutrophils % Lymphocytes % Monocytes % Eosinophils % Basophils % Nucleated RBC % Absolute Neutrophils Absolute Lymphocytes Absolute Monocytes Absolute Eosinophils Absolute Basophils Sodium Potassium Chloride Cancelled Carbon Dioxide 26.5 Cancelled Anion Gap 10.5 Cancelled BUN 11 Creatinine Est GFR (CKD-EPI 2020) Glucose Calcium Magnesium Total Bilirubin AST ALT Alkaline Phosphatase Troponin I Total Protein Albumin Lipase Urine Color Urine Clarity Urine pH Ur Specific [place] Urine Protein Urine Ketones Urine Blood Urine Nitrite Urine Bilirubin Urine Urobilinogen Ur Leukocyte Esterase Urine RBC Urine WBC Ur Epithelial Cells Urine Crystals Urine Bacteria Urine Casts Urine Mucus Ur Culture Indicated? Urine Glucose 05/01/23 05/01/23 05/01/23 10:24 10:24 10:24 WBC RBC Hgb Hct MCV MCH MCHC RDW Plt Count MPV Immature Gran % Neutrophils % Lymphocytes % Monocytes % Eosinophils % Basophils % Nucleated RBC % Absolute Neutrophils Absolute Lymphocytes Absolute Monocytes Absolute Eosinophils Absolute Basophils Sodium Potassium Chloride Carbon Dioxide Anion Gap BUN Cancelled Creatinine 1.1 Cancelled Est GFR (CKD-EPI 2020) 80.77 Cancelled Glucose 146 H Calcium Magnesium Total Bilirubin AST ALT Alkaline Phosphatase Troponin I Total Protein Albumin Lipase Urine Color Urine Clarity Urine pH Ur Specific [place] Urine Protein Urine Ketones Urine Blood Urine Nitrite Urine Bilirubin Urine Urobilinogen Ur Leukocyte Esterase Urine RBC Urine WBC Ur Epithelial Cells Urine Crystals Urine Bacteria Urine Casts Urine Mucus Ur Culture Indicated? Urine Glucose 05/01/23 05/01/23 05/01/23 10:24 10:24 10:24 WBC RBC Hgb Hct MCV MCH MCHC RDW Plt Count MPV Immature Gran % Neutrophils % Lymphocytes % Monocytes % Eosinophils % Basophils % Nucleated RBC % Absolute Neutrophils Absolute Lymphocytes Absolute Monocytes Absolute Eosinophils Absolute Basophils Sodium Potassium Chloride Carbon Dioxide Anion Gap BUN Creatinine Est GFR (CKD-EPI 2020) Glucose Cancelled Calcium 9.6 Cancelled Magnesium 2.1 Cancelled Total Bilirubin 0.6 AST ALT Alkaline Phosphatase Troponin I Total Protein Albumin Lipase Urine Color Urine Clarity Urine pH Ur Specific [place] Urine Protein Urine Ketones Urine Blood Urine Nitrite Urine Bilirubin Urine Urobilinogen Ur Leukocyte Esterase Urine RBC Urine WBC Ur Epithelial Cells Urine Crystals Urine Bacteria Urine Casts Urine Mucus Ur Culture Indicated? Urine Glucose 05/01/23 05/01/23 05/01/23 10:24 10:24 10:24 WBC RBC Hgb Hct MCV MCH MCHC RDW Plt Count MPV Immature Gran % Neutrophils % Lymphocytes % Monocytes % Eosinophils % Basophils % Nucleated RBC % Absolute Neutrophils Absolute Lymphocytes Absolute Monocytes Absolute Eosinophils Absolute Basophils Sodium Potassium Chloride Carbon Dioxide Anion Gap BUN Creatinine Est GFR (CKD-EPI 2020) Glucose Calcium Magnesium Total Bilirubin Cancelled AST 14 L Cancelled ALT 24 Cancelled Alkaline Phosphatase 111 Troponin I Total Protein Albumin Lipase Urine Color Urine Clarity Urine pH Ur Specific [place] Urine Protein Urine Ketones Urine Blood Urine Nitrite Urine Bilirubin Urine Urobilinogen Ur Leukocyte Esterase Urine RBC Urine WBC Ur Epithelial Cells Urine Crystals Urine Bacteria Urine Casts Urine Mucus Ur Culture Indicated? Urine Glucose 05/01/23 05/01/23 05/01/23 10:24 10:24 10:24 WBC RBC Hgb Hct MCV MCH MCHC RDW Plt Count MPV Immature Gran % Neutrophils % Lymphocytes % Monocytes % Eosinophils % Basophils % Nucleated RBC % Absolute Neutrophils Absolute Lymphocytes Absolute Monocytes Absolute Eosinophils Absolute Basophils Sodium Potassium Chloride Carbon Dioxide Anion Gap BUN Creatinine Est GFR (CKD-EPI 2020) Glucose Calcium Magnesium Total Bilirubin AST ALT Alkaline Phosphatase Cancelled Troponin I < 50 Total Protein 8.2 Cancelled Albumin 4.5 Cancelled Lipase 35 Urine Color Urine Clarity Urine pH Ur Specific [place] Urine Protein Urine Ketones Urine Blood Urine Nitrite Urine Bilirubin Urine Urobilinogen Ur Leukocyte Esterase Urine RBC Urine WBC Ur Epithelial Cells Urine Crystals Urine Bacteria Urine Casts Urine Mucus Ur Culture Indicated? Urine Glucose 05/01/23 05/01/23 12:50 13:35 WBC RBC Hgb Hct MCV MCH MCHC RDW Plt Count MPV Immature Gran % Neutrophils % Lymphocytes % Monocytes % Eosinophils % Basophils % Nucleated RBC % Absolute Neutrophils Absolute Lymphocytes Absolute Monocytes Absolute Eosinophils Absolute Basophils Sodium Potassium Chloride Carbon Dioxide Anion Gap BUN Creatinine Est GFR (CKD-EPI 2020) Glucose Calcium Magnesium Total Bilirubin AST ALT Alkaline Phosphatase Troponin I Cancelled Total Protein Albumin Lipase Urine Color Yellow Urine Clarity Clear Urine pH 8.5 H Ur Specific [place] 1.015 Urine Protein 30 H Urine Ketones 15 H Urine Blood Negative Urine Nitrite Negative Urine Bilirubin Negative Urine Urobilinogen 1.0 H Ur Leukocyte Esterase Negative Urine RBC Negative Urine WBC Negative Ur Epithelial Cells Rare Urine Crystals Negative Urine Bacteria Negative Urine Casts 0-2 Hyaline Urine Mucus Negative Ur Culture Indicated? No Urine Glucose Negative Last Vital Signs Temp 97.9 F 05/01/23 10:17 Pulse 58 L 05/01/23 14:32 Resp 15 05/01/23 14:32 BP 155/113 H 05/01/23 14:32 Pulse Ox 99 05/01/23 10:17 Time Spent Time spent with Patient: 55-74 minutes Time was spent: preparing to see the patient(eg.review tests), referring, communicating with other health school child care attendant, indepentently interpreting results and counseling the patient
[2023-05-01] MEDS: Lactated Ringers 1,000 ML 125 ML IV ×2 (15:45→20:00)
--- NOTE | 2023-05-01 18:09 | W.PM.OP ---
Date of service: 05/01/23 Time of Service: 18:09 Operative Note Operative Note DATE OF PROCEDURE: 05/01/23 PRE-OP DIAGNOSIS: acute small bowel obstruction POST-OP DIAGNOSIS: same Closed-loop small bowel obstruction PROCEDURE: Exploratotry laparoscopy, lysis of adhesion SURGEON: Michael Gresham CRIMINAL LEGAL ASSISTANT: Desiree Barber ANESTHESIA TYPE: General LMA/ETT Refer to Anesthesia Record ESTIMATED BLOOD LOSS: 5 PATHOLOGY: none sent COMPLICATIONS: None Patient was transported to: PACU Patient's condition: stable Indications: This is a 53-year-old male who was awaken today at 4am with acute severe abdominal pain. He had a couple episodes of small amounts of emesis after he drank water. During clinical evaluation in the ED a CT scan performed demonstrated a small bowel obstruction with concern for internal hernia/closed loop obstruction. Given these findings and a correlating physical exam, the patient was admitted to the surgical service and operative intervention was offered. After reviewing the risks and benefits, the patient consented, and agreed to proceed to the OR. Findings: 1. Approximately 35cm segment of small intestine that was significantly congested and hyperemic in the right upper quadrant, but appeared viable. 2. Internal hernia of small bowel secondary to a dense omental adhesion inferior to the mid-transverse colon Procedure Description: The patient was identified by name and birthdate and brought to the operating room. He laid supine on the operating room table. Cardiac monitors were placed, and SCDs were applied to the lower extremities. General anesthesia was induced, and the patient was intubated. A Greenberg catheter was placed under sterile conditions. The hair of the abdomen was clipped. The left arm was tucked with a sled, with careful attention to positioning and protection of pressure points. The abdomen was prepped and draped in usual standard fashion. A time out was called and reviewed by all team members--once in agreement, we proceeded. Local anesthesia was introduced in the LUQ at Joy's point, and a 5mm Optiview-style trocar was introduced. Pneumoperitoneum was established. A quick survey did not demonstrate any intra-abdominal injury had occured upon entry. Also, dilated congested and hyperemic small bowel loops were seen in the RUQ. Under direct vision, two additional 5mm trocars were placed in the left mid-abdomen, and LLQ. The patient was placed in Trendelenburg, right side up. I turned my attention to the involved, dilated small bowel. Approximately With gentle manipulation, I followed the loops and encountered an area just inferior to the proximal transverse colon where two loops were mobile but tightly opposed. This appeared to be the site of the internal hernia but it was initially difficult to tell if this was a mesenteric or omental defect. I followed the omentum from the left lateral border and followed it while fully elevated, and demonstrated that the area of obstruction was indeed secondary to an omental defect. Taking small careful bites, the defect was released using the Ligasure device. Hemostasis of the omentum was ensured. The involved loops of bowel were released, and decompression was noted. Frequently changing the table position, the bowel was run from the terminal ileum to ligament of Treitz. The previously obstructed loops of bowel all looked improved, with decreased hyperemia, and peristalsis noted in all areas. There was no concern that there were unidentified areas of obstruction, or compromised bowel. A final survey of the abdomen revealed no injury. The trocars were removed under direct vision, and pneumoperitoneum was evacuated. The incisions were infiltrated with the remaining local anesthesia. All incisions were closed with 4-0 suture, and dressed with Dermabond. All counts of sharp and soft objects were correct. The Greenberg catheter was removed. The patient was extubated and transferred to the PACU in stable condition.
--- NOTE | 2023-05-01 18:15 | W.ANESPOSTOP ---
Postoperative Evaluation Date, Time and Location Date Performed: 05/01/23 Time Performed: 18:15 Patient Location: PACU Vital Signs Most Recent Imported Vital Signs: Most Recent Vital Signs Temp Pulse Resp BP Pulse Ox 36.7 C 70 14 96/58 L 97 05/01/23 18:03 05/01/23 18:03 05/01/23 18:03 05/01/23 18:03 05/01/23 18:03 Pain Score Most Recent Pain Score: Most Recent Pain Score Pain Level 9 05/01/23 10:23 Assessment Mental Status: Arousable with meaningful communication Airway and Respiratory Function: Patent airway with normal (patient baseline) respiratory exam Cardiovascular Function: Hemodynamically Stable Hydration Status: Adequately Hydrated Nausea & Vomiting: No Nausea or Vomiting Pain: Pt. Denies Any Pain Peripheral Nerve Block: Patient did not receive a nerve block
[2023-05-01] MEDS: Enoxaparin 40 MG/0.4 ML SYR SC (21:02)
[2023-05-01] MEDS: Normal Saline Flush 10 ML SYR IVP (21:02)
[2023-05-02] MEDS: Lactated Ringers 1,000 ML 125 ML IV ×2 (02:07→09:32)
[2023-05-02 02:08] VITALS: BP 118/68; PULSE 70; RESP 16; TEMP 36; O2SAT 98
[2023-05-02] MEDS: Normal Saline Flush 10 ML SYR IVP ×2 (07:18→10:26)
[2023-05-02 07:53] VITALS: BP 138/86; PULSE 65; RESP 16; TEMP 36.8; O2SAT 99
--- NOTE | 2023-05-02 08:43 | PDOC.CMIN ---
Date of service: 05/02/23 Time of Service: 08:43 Care Management Initial Assmt Initial Assessment REASON FOR HOSPITALIZATION:: SBO PREVIOUS FUNCTIONAL STATUS/SOCIAL/FAMILY SUPPORTS:: Steve lives in [place], [place]. He works for [employer] in [facility]. ADVANCE DIRECTIVES:: none Has patient been provided with info about the portal/API?: Yes Did the patient sign up for the portal?: No CODE STATUS:: Full Code INSURANCE COVERAGE / FINANCIAL ISSUES:: [facility] PRIMARY CARE PHYSICIAN:: Juan Ramon Thomas POTENTIAL DISCHARGE NEEDS:: follow up with PCP, surgeon and plan of care PATIENT/FAMILY EDUCATION NEEDS:: review of discharge instructions, activity, diet, limitations, follow up plan, discuss Ask Me Three TRANSPORTATION:: via private vehicle with friend/family PLAN:: Anticipate Steve will be discharged home with no new services. He will follow up with his community providers and plan of care and transport with family/CM will follow and assess for discharge needs. PFSH All Active Problems (Updated 05/01/23 @ 13:12 by Sue Mitchell NP) SBO (small bowel obstruction) (Acute) Surgical History Hx of tonsillectomy 1988 History of appendectomy 1988 Family History Mother No problems noted. Father Hypertension Heart murmur Sleep apnea pt reports father's case of Sleep Apnea is mild Sister No problems noted. Sister No problems noted. Sister No problems noted. Brother No problems noted. Social History Smoking/Tobacco Use Status: Former Tobacco Use Tobacco: How many years used: 16 Smoking risk assessment performed?: Yes Alcohol Intake: former Drug use: Never Substance use type: does not use Household members: children Housing: house Current gender identity: male What is your relationship status?: Panel score (0-1 are the most socially isolated patients): 0 What type of physical activity do you participate in: none Seatbelt use: always Drive intox or ride w/intox truck driver salesperson: No Working smoke detector in home: Yes Fire extinguisher in home: No Carbon monox detector in home: Yes Do you feel safe at home: Yes Do you feel safe in your relationship?: Yes
[2023-05-02 11:03] VITALS: BP 144/81; PULSE 65; RESP 18; TEMP 36.6; O2SAT 98
--- NOTE | 2023-05-02 13:38 | W.PM.DS.N ---
Date of service: 05/02/23 Time of Service: 13:38 DS: Diagnosis Discharge Diagnosis (1) SBO (small bowel obstruction): Status: Acute Asessment and Plan: 53-year-old male admitted with small bowel obstruction, found to have closed loop obstruction through an omental defect, in good condition. He is POD#1 s/p exploratory laparoscopy with lysis of adhesions. He is tolerating a diet, ambulating, voiding well, and passing flatus. --discharge home Discharge Plan Disposition Patient Disposition: Home Condition: Good Discharge Details Reason For Visit: Small Bowel Obstruction Admit Date/Time: 05/01/23 18:11 Admit Provider: Michael Gresham Attending Provider: Michael Gresham Primary Care Provider: Juan Ramon Thomas [facility] Course Hospital Course: This is a 53-year-old male who presented to the ED on the morning of 05/01/2023 with a several hour history of severe acute abdominal pain. Evaluation in the ED revealed a small bowel obstruction by CT scan, with concern for internal hernia and closed-loop pathology. A surgical consult was called, and upon my assessment, I agreed with the concering findings. I explained the pathophysiology to the patient, and potential surgical outcomes. He consented, and we proceeded to the operating room directly from the ED. Intraoperatively, an ~35 cm loop of small bowel was found to be involved in an internal hernia through a defect in the omentum. Once the anatomy was clarified, the defect was released, and the bowel was run. All bowel appeared to be viable, and surgery concluded. Postoperatively, the patient has been doing well, tolerating clear and then full liquid diets. He is ambulating and voiding independently. He has not accepted any pain medication. He is also passing a good amount of flatus. He states that he feels safe and ready to go home. Home Meds and New Rx's Prescriptions: No Action No Known Home Meds Discharge Instructions Additional Instructions: For pain control, alternate taking acetaminophen and ibuprofen every 4-6 hours. Be sure not to exceed maximum dose as detailed on the bottle. Start your diet with light meals for the next few days. Soups, sandwiches, pasta, etc. Avoid raw fruits and vegetables for 5-7 days. Some bloating is normal for the first few days. Walking around will help your bowels start to move normally again. You may shower. Avoid scrubbing the incisions. Just let soapy water pass over them, and pat the area dry. Avoid lifting >10-15 lbs for 2-3 weeks. Avoid twisting, turning, bending. Call the office if you develop persistent fevers (>101.4F), chills, nausea, vomiting, or return of significant abdominal pain. If your wounds become significantly more red, indurated, tender, etc., call the office. ([phone]) Stand Alone Forms: DSU Post op Instructions, Nursing Discharge Form Referrals: Michael Gresham MD [MD CONSULTING PHYSICIAN] - 05/15/23 2:30 pm Activity:: Limit lifting >10-15 lbs. Equipment/Supplies:: No Equipment Needed Diet:: As Tolerated DS: Summary Time Spent with Patient providing and/or coordinating discharge services: Less than 30 minutes Status at Discharge Functional status at discharge: independent ambulation Overall status at discharge: patient is progressing back to baseline Mental Status: mental status grossly normal Speech and Movement: speech and movement normal Mood: congruent mood Affect: normal affect Quality:SDOH Health Related Social Needs: No Data to Display Exam Const General: cooperative, healthy appearing, comfortable, no acute distress and well developed Nutritional Appearance: well nourished Orientation: alert, awake and oriented x3 Neck Neck: normal visual inspection, trachea midline and supple Resp Effort & Inspection: normal respiratory effort (a little splinting with deep breaths) Auscultation: clear to auscultation bilaterally Cardio Rate: regular rate Rhythm: regular rhythm Heart Sounds: S1 normal and S2 normal GI Inspection: distended (mild) and incision (clean, dry, intact with Dermabond) Palpation: soft, not firm, no guarding and tender (appropriately tender) Auscultation: normal bowel sounds Skin General skin exam: no rashes or lesions noted Hair: other (hair absent on lower legs) Neuro General: patient alert, patient awake and patient oriented x3 Cognition: normal cognition Speech: speech normal Psych Mental Status: mental status grossly normal Speech and Movement: speech and movement normal Mood: congruent mood Affect: normal affect Attitude: cooperative Thought Content: normal DS: Data Vitals/I&O Vitals and I&O: Vital Signs Temperature 97.9 F 05/02/23 11:03 Temperature Source Tympanic 05/02/23 11:03 Pulse 65 05/02/23 11:03 Pulse Rhythm Regular 05/02/23 07:17 Pulse 81 05/01/23 14:32 Respiratory Rate 18 05/02/23 11:03 Respiratory Effort Normal, Non-Labored 05/02/23 07:17 Respiratory Depth Normal 05/02/23 07:17 Respiratory Pattern Normal 05/02/23 07:17 Blood Pressure 144/81 H 05/02/23 11:03 Blood Pressure Mean 129 05/01/23 14:32 Blood Pressure Position Sitting 05/01/23 10:17 Pulse Oximetry 98 05/02/23 11:03 Respiratory End-tidal CO2 38 05/01/23 17:53 Oxygen Delivery Method Room Air 05/02/23 11:03 Oxygen Flow Rate 0 05/02/23 11:03 Pain Level 2 05/02/23 07:53 Comment Pt. complaining of some mild gas pain, but denies pain otherwise at this time. Pt. denies the need for pain medication at this time. 05/02/23 11:03 Intake & Output 05/01/23 05/02/23 05/02/23 23:59 11:59 23:59 Intake Total 2000 / 3010 2064.166 / 2064.166 Output Total 800 / 800 600 / 600 Balance 1200 / 2210 1464.166 / 1464.166 Weight 95.311 kg Intake: IV 2000 / 3010 1824.166 / 1824.166 Oral 240 / 240 Output: Urine 800 / 800 600 / 600 Other: Urine Color Pale Pale Yellow Yellow Urine Appearance Clear Clear Comment Void x1 in the toilet. Emesis Description None Voiding Methods Urinal Toilet Data Completed and Pending Labs on day of discharge: Labs from last 24 hours 05/01/23 13:35 Troponin I Cancelled Imaging CT scan - abdomen: My impression: I agreed with the radiolgist's impression that there was an internal hernia The presence of proximal and distal collapsed loops with mesenteric stranding and vascular hyperemia was very concerning for a closed-loop obstruction with vascular compromise. Radiologist's impression: CTA C/A/P (05/01/2023): FINDINGS: VASCULATURE: Pulmonary arteries: Not enlarged. Aorta: No acute aortic abnormality identified. No abdominal aortic aneurysm. Celiac trunk and mesenteric arteries: No occlusion or significant stenosis. Renal arteries: No occlusion or significant stenosis. Right iliac arteries: No occlusion or significant stenosis. Left iliac arteries: No occlusion or significant stenosis. CHEST: Lungs: Unremarkable. No consolidation. No masses. Pleural spaces: Unremarkable. No pneumothorax. No pleural effusion. Heart: Unremarkable. No cardiomegaly. No pericardial effusion. ABDOMEN AND PELVIS: Liver: No mass. Gallbladder and bile ducts: Unremarkable. No calcified stones. No ductal dilation. Pancreas: Unremarkable. No mass. No ductal dilation. Spleen: Unremarkable. No splenomegaly. Adrenal glands: Unremarkable. No mass. Kidneys and ureters: Unremarkable. No solid mass. No hydronephrosis. Stomach and bowel: The stomach appears unremarkable. Proximal small bowel is unremarkable. Some mid small bowel loops measuring up to 3.3 cm in diameter and are fluid-filled with a transition to nondilated distal small bowel loops in the right mid pelvis (axial series 6 image 858). Mild small bowel mesenteric fat stranding and vascular hyperemia. No significant wall thickening. The large bowel loops are not abnormally dilated. Appendix: No evidence of appendicitis. Intraperitoneal space: Minimal free fluid in the pelvis. Urinary bladder: Unremarkable. No mass. Reproductive: Unremarkable as visualized. Lymph nodes: Unremarkable. No enlarged lymph nodes. Bones/joints: Unremarkable. No acute fracture. Soft tissues: Unremarkable. IMPRESSION: 1. No acute aortic abnormality identified. No abdominal aortic aneurysm. 2. Findings concerning for small bowel obstruction possibly due to adhesions or internal hernia. 3. Minimal free fluid in the pelvis. Dictated and Authenticated by: Reggie Andrade MD. Ordering:DARSHAN Rogers MD Lab and Radiology Reports: Laboratory Results WBC 13.17 10^3/uL (4.4-10.8) H 05/01/23 10:24 RBC 5.42 10^6/uL (4.36-5.78) 05/01/23 10:24 Hgb 15.4 g/dL (13.5-17.5) 05/01/23 10:24 Hct 46.5 % (40.0-50.0) 05/01/23 10:24 MCV 86 fL (80-95) 05/01/23 10:24 MCH 28.4 pg (27.0-33.0) 05/01/23 10:24 MCHC 33.1 % (32.0-36.0) 05/01/23 10:24 RDW 12.7 % (11.8-14.1) 05/01/23 10:24 Plt Count 269 10^3/uL (130-400) 05/01/23 10:24 MPV 10.5 fL (8.0-11.0) 05/01/23 10:24 Immature Gran % 0.3 05/01/23 10:24 Neutrophils % 86.7 05/01/23 10:24 Lymphocytes % 10.2 05/01/23 10:24 Monocytes % 2.6 05/01/23 10:24 Eosinophils % 0.0 05/01/23 10:24 Basophils % 0.2 05/01/23 10:24 Nucleated RBC % 0.0 % (0.0-0.3) 05/01/23 10:24 Absolute Neutrophils 11.42 10^3/uL (1.2-6.7) H 05/01/23 10:24 Absolute Lymphocytes 1.34 10^3/uL (1.2-3.4) 05/01/23 10:24 Absolute Monocytes 0.34 10^3/uL (0.1-0.8) 05/01/23 10:24 Absolute Eosinophils 0.00 10^3/uL (0.0-0.7) 05/01/23 10:24 Absolute Basophils 0.03 10^3/uL (0.0-0.2) 05/01/23 10:24 Sodium 138 mmol/L (136-145) 05/01/23 10:24 Sodium Cancelled 05/01/23 10:24 Potassium 4.4 mmol/L (3.5-5.1) 05/01/23 10:24 Potassium Cancelled 05/01/23 10:24 Chloride 101 mmol/L (98-107) 05/01/23 10:24 Chloride Cancelled 05/01/23 10:24 Carbon Dioxide 26.5 mmol/L (21.0-32.0) 05/01/23 10:24 Carbon Dioxide Cancelled 05/01/23 10:24 Anion Gap 10.5 mmol/L (3-11) 05/01/23 10:24 Anion Gap Cancelled 05/01/23 10:24 BUN 11 mg/dL (7-18) 05/01/23 10:24 BUN Cancelled 05/01/23 10:24 Creatinine 1.1 mg/dL (0.70-1.30) 05/01/23 10:24 Creatinine Cancelled 05/01/23 10:24 Est GFR (CKD-EPI 2020) 80.77 (mL/min/1.73m2) 05/01/23 10:24 Est GFR (CKD-EPI 2020) Cancelled 05/01/23 10:24 Glucose 146 mg/dL (74-106) H 05/01/23 10:24 Glucose Cancelled 05/01/23 10:24 Calcium 9.6 mg/dL (8.5-10.1) 05/01/23 10:24 Calcium Cancelled 05/01/23 10:24 Magnesium 2.1 mg/dL (1.8-2.4) 05/01/23 10:24 Magnesium Cancelled 05/01/23 10:24 Total Bilirubin 0.6 mg/dL (0.2-1.0) 05/01/23 10:24 Total Bilirubin Cancelled 05/01/23 10:24 AST 14 U/L (15-37) L 05/01/23 10:24 AST Cancelled 05/01/23 10:24 ALT 24 U/L (16-63) 05/01/23 10:24 ALT Cancelled 05/01/23 10:24 Alkaline Phosphatase 111 U/L (46-116) 05/01/23 10:24 Alkaline Phosphatase Cancelled 05/01/23 10:24 Troponin I Cancelled 05/01/23 13:35 Total Protein 8.2 g/dL (6.4-8.2) 05/01/23 10:24 Total Protein Cancelled 05/01/23 10:24 Albumin 4.5 g/dL (3.4-5.0) 05/01/23 10:24 Albumin Cancelled 05/01/23 10:24 Lipase 35 U/L (16-77) 05/01/23 10:24 Urine Color Yellow (Yellow) 05/01/23 12:50 Urine Clarity Clear (Clear) 05/01/23 12:50 Urine pH 8.5 (5-8) H 05/01/23 12:50 Ur Specific Mobile 1.015 (1.005-1.025) 05/01/23 12:50 Urine Protein 30 mg/dL (Negative) H 05/01/23 12:50 Urine Ketones 15 mg/dL (Negative) H 05/01/23 12:50 Urine Blood Negative (Negative) 05/01/23 12:50 Urine Nitrite Negative (Negative) 05/01/23 12:50 Urine Bilirubin Negative (Negative) 05/01/23 12:50 Urine Urobilinogen 1.0 mg/dL (Up to 0.2) H 05/01/23 12:50 Ur Leukocyte Esterase Negative (Negative) 05/01/23 12:50 Urine RBC Negative HPF (0-2) 05/01/23 12:50 Urine WBC Negative HPF (0-5) 05/01/23 12:50 Ur Epithelial Cells Rare HPF (Negative) 05/01/23 12:50 Urine Crystals Negative HPF (Negative) 05/01/23 12:50 Urine Bacteria Negative HPF (Negative) 05/01/23 12:50 Urine Casts 0-2 Hyaline LPF (Negative) 05/01/23 12:50 Urine Mucus Negative (Negative) 05/01/23 12:50 Ur Culture Indicated? No 05/01/23 12:50 Urine Glucose Negative mg/dL (Negative) 05/01/23 12:50 PFSH All Active Problems (Updated 05/01/23 @ 13:12 by Sue Mitchell NP) SBO (small bowel obstruction) (Acute) Surgical History Hx of tonsillectomy 1988 History of appendectomy 1988 Family History Mother No problems noted. Father Hypertension Heart murmur Sleep apnea pt reports father's case of Sleep Apnea is mild Sister No problems noted. Sister No problems noted. Sister No problems noted. Brother No problems noted. Social History Smoking/Tobacco Use Status: Former Tobacco Use Tobacco: How many years used: 16 Smoking risk assessment performed?: Yes Alcohol Intake: former Drug use: Never Substance use type: does not use Household members: children Housing: house Current gender identity: male What is your relationship status?: Panel score (0-1 are the most socially isolated patients): 0 What type of physical activity do you participate in: none Seatbelt use: always Drive intox or ride w/intox driver wheelchair: No Working smoke detector in home: Yes Fire extinguisher in home: No Carbon monox detector in home: Yes Do you feel safe at home: Yes Do you feel safe in your relationship?: Yes Time Spent with Patient Time Spent with Patient: 45-69 minutes Time was spent: preparing to see the patient(eg.review tests), referring, communicating with other health women's health care nurse practitioner, indepentently interpreting results and counseling the patient
--- NOTE | 2023-05-02 15:29 | PDOC.CMPRO ---
Date of service: 05/02/23 Time of Service: 15:29 Care Management Progress Note Progress Note Text Progress Note Text: Mack was admitted yesterday because of severe abdominal pain. He was taken to the OR from the ED and had a laparoscopic lysis of adhesions to relieve the SBO. He did well overnight and was able to tolerate a full liquid diet. He will be discharged home this afternoon. Mack denied the need for any services and has a friend that will transport him home. with no new services. He d
== END 2023-05-02 14:53 | disposition home or self-care (01) ==
LOC: ER 15:14 → SUR 15:39 → MS 18:11
PROVIDERS: Admitting Provider Surgery; Emergency Provider Registered Nurse Emergency; PCP Family Medicine; Visit Provider Surgery
PROC: (CPT 49320; principal; 2023-05-01 15:00)
DX: K56.50 Intestinal adhesions [bands], unspecified as to partial versus complete obstruction (principal); Z87.891 Personal history of nicotine dependence
CPT/HCPCS: 44180; 00123; 36415; 71275; 80053; 83690; 93005; 96360; 96361; 96372; 96374; 96375; 96376; 99285; J1650; 74174; 81003; 81015; 83735; 84484; 85025; 93010; C9290; G0378; J0131; J0665; J1100; J1885; J2001; J2250; J2270; J2405; J2704; J3010; J3490